=== PATIENT | female | born 1985 ===

== ENCOUNTER → 2023-12-28 11:17 | Outpatient (REF) | payer BC, SELFPAY | LOC: WDC 11:17 | PROVIDERS: ATTENDING PHYSICIAN Obstetrics & Gynecology | DX: N61.22 Granulomatous mastitis, left breast (principal) | CPT/HCPCS: 76642 ==

== ENCOUNTER 2023-12-28 14:28 | Emergency (ER) | payer BC, SELFPAY ==
[2023-12-28 14:31] VITALS: BP 116/84
--- NOTE | 2023-12-28 15:46 | ED.GENMED ---
History of Present Illness
General
Chief Complaint: Breast Problem
Source: patient
Exam Limitations: none
Time Seen by Provider: 12/28/23 15:39
Nursing documentation reviewed up to this point in time: agreed with
History of Present Illness
History of Present Illness:
38 y/o F with no sig pmh
here with left breast redness/swelling x 1 week
developed fever/chills 5 days ago and went to her OB/GYNE who started empiric abx (?dicloxacillin) and then was sent for US, had her US today and was called today with results of breast abscess
pt's baby is a 3 year old, she only nurses from the R breast and doesn't pump the left becuase she never produced on that side
the rendess is better and the fever has resolved but it is still painful
Past History
Past History
ED Past Medical History: None
ED Past Surgical History: None
Review of Systems
Review of Systems
Allergies reviewed?: Yes
All Other Systems: Not applicable
Phy Exam
Physical Exam
Physical Exam:
GENERAL: Alert , in no apparent distress
EYE: pupils equal and reactive
NECK: Supple
ENT: o/p clr, mmm.
CARDIAC: Regular rate and rhythm .
breast: left lateral breast slightly warm, erythematous approx 8 cm x 5 cm with centralized induration lateral to the aerola; no drainage; slightly tender
LUNGS: Clear breath sounds bilaterally, no acute respiratory distress, no wheezes/rales/rhonchi
ABDOMEN: Soft, without focal tenderness, no r/g, no cvat, normal bowel sounds
NEUROLOGICAL: Alert and oriented, no focal neuro deficits
SKIN: Warm and dry, skin intact.
MUSCULOSKELETAL: No edema, well perfused. neg cameron's sign
PSYCH: Normal and appropriate interaction.
Course
Orders/Labs/Results
Orders:
Orders
12/28/23 15:32
Complete Blood Count/With Diff Urgent
Comprehensive Metabolic Panel Urgent
Lactic Acid Urgent
Abnormal Lab Results
12/28/23
15:32
Hct 35.5 L %
(37.0-47.0)
MPV 10.7 H fL
(7.4-10.4)
12/28/23 15:32
12/28/23 15:32
Vital Signs
Initial and Last Documented VS:
Initial Vital Signs
Temp Pulse Resp BP Pulse Ox
98.7 F 95 18 116/84 97
12/28/23 14:31 12/28/23 14:31 12/28/23 14:31 12/28/23 14:31 12/28/23 14:31
Last Documented Vital Signs
Temp Pulse Resp BP Pulse Ox
98.7 F 95 18 116/84 97
12/28/23 14:31 12/28/23 14:31 12/28/23 14:31 12/28/23 14:31 12/28/23 14:31
MDM/Problems Addressed
Differential Diagnosis Includes:
breast abscess, cellulitis
MDM/Problems Addressed:
38 y/o F
L breast pain/erythema, induration x 1 week, with fever
on abx x 2 days and fever resolved
sypmtoms are overall improving but pt had her US today and was sent for eval after reading was an abscess
pt is well appearing, afebrile
left sided redness and some mild induration
no nipple drainage
wbc normal
us read appreciated
abscess collection ois very small < 1 cm
d/w dr. lora, breast surgery
no I&D recommended at this point
continue dicloxacillin qid x 14 days ( i added 4 days more of abx)
warm compresses
*Critical Care Note
Total Time (30-74mins, 75-104mins- exclusive of procedures): Not Applicable
ED Attending Note
-
Portions of this chart may have been created with voice recognition software.� Occasional wrong word or��sound alike� substitutions may have occurred due to the inherent limitations of voice recognition software.
Discharge Plan
Departure
Patient Disposition: Home (Routine Discharge)
Date of Disposition: 12/28/23
Time of Disposition: 16:13
Patient with high blood pressure during this ER visit?: No
Condition: Fair
Covid-19: Not Applicable
Discharge Problem:
Abscess of breast
Instructions: Skin Abscess
Prescriptions:
New
dicloxacillin 500 mg capsule
500 mg PO Q6H 4 Days Qty: 16 0RF
No Action
PNV cmb#95-ferrous fumarate-FA [] 1 EACH tablet
1 ea PO DAILY
citalopram 20 MG tablet
20 mg PO DAILY
albuterol sulfate 1 PUFF HFA aerosol inhaler
1 puff inhalation R Q4HPRN PRN (Reason: short of breath)
ibuprofen 600 MG tablet
600 mg PO Q4HPRN PRN (Reason: moderate pain/cramps) Qty: 90 0RF
Referrals:
Amaris Lora MD [Active] - Follow up in 5-7 days
Kelly Evans DO [Family Provider] -
Activity Restrictions/Additional Instructions:
YOU HAVE A VERY SMALL ABSCESS 0.8 CM X 0.8 CM X 0.9 CM IN YOUR LEFT BREAST
YOUR BLOOD WORK IS NORMAL
YOU SHOULD TAKE YOUR DICLOXACILLIN 4 TIMES A DAY FOR 14 DAYS
WARM COMPRESSES SEVERAL TIMES A DAY
FOLLOW UP WITH DR. LORA BREAST SURGERY IF NOT IMPROVED
Interventions
Interventions:
*Risk Screen - Suicide Last Done: 12/28/23 16:00
*General Assessment Last Done: 12/28/23 14:31
*Neglect/Abuse Screening Last Done: 12/28/23 16:00
ED- Fall Risk Assessment Last Done: 12/28/23 16:00
*ED COVID-19 Vaccine History Last Done: 12/28/23 14:31
*Nursing Disposition Last Done: 12/28/23 16:36
ED-Skin Assessment Last Done: 12/28/23 16:34
Discharge Date and Time
Discharge Date/Time: 12/28/23 16:36
Print Language: FILIPINO
[2023-12-28 15:54] LABS: % Basophils 0.6 % (0-2); % Eosinophils 5.4 % (0-6); % Immature Granulocytes 0.3 % (0-0.5); % Lymphocytes 21.3 % (20.5-51.1); % Monocytes 6.3 % (1.7-9.3); % Neutrophils 66.1 % (42.2-75.2); Absolute Basophils 0.1 10^3/uL (0-0.2); Absolute Eosinophils 0.4 10^3/uL (0-0.7); Absolute Lymphocytes 1.7 10^3/uL (1.2-3.4); Absolute Monocytes 0.5 10^3/uL (0.1-0.6); Absolute Neutrophils 5.2 10^3/uL (1.4-6.5); Hematocrit 35.5 % (37.0-47.0); Hemoglobin 12.1 g/dL (12.0-16.0); Mean Corp Hgb Conc. 34.1 g/dL (33.0-37.0); Mean Corpuscular Hgb 27.6 pg (27.0-31.0); Mean Corpuscular Volume 81.1 fL (81.0-99.0); Mean Platelet Volume 10.7 fL (7.4-10.4); Nucleated Red Blood Cells % 0 %; Platelet Count 276 10^3/uL (130-400); Red Blood Cell Count 4.38 10^6/uL (4.20-5.40); Red Cell Dist. Width 13.2 % (11.5-14.5); White Blood Cell Count 7.8 10^3/uL (4.8-10.8)
[2023-12-28 16:10] LABS: ALT (SGPT) < 10 U/L (0-35); AST (SGOT) 16 U/L (14-36); Albumin 3.8 g/dl (3.5-5.0); Alkaline Phosphatase 84 U/L (38-126); Blood Urea Nitrogen 10 mg/dl (7-17); Calcium 9.1 mg/dl (8.4-10.2); Carbon Dioxide 26 mmol/L (22-30); Chloride 105 mmol/L (98-107); Glucose 95 mg/dl (70-99); Potassium 4.1 mmol/L (3.5-5.1); Sodium 138 mmol/L (135-145); Total Bilirubin 0.3 mg/dl (0.2-1.3); Total Protein 6.5 g/dl (6.3-8.2); eGFR > 60.00
== END 2023-12-28 16:36 | disposition home or self-care (01) ==
LOC: EMR 14:28
PROVIDERS: Emergency Medicine; EMERGENCY PHYSICIAN Emergency Medicine; FAMILY PHYSICIAN Family Medicine
DX: N61.1 Abscess of the breast and nipple (principal); Z91.013 Allergy to seafood; Z91.018 Allergy to other foods
CPT/HCPCS: 99283; 76642; 80053; 83605; 85025